=== PATIENT | male | born 1945 | race Caucasian/White ===

== ENCOUNTER → 2017-03-27 | Outpatient (CLI) | payer MEDICARE, OTHER ==
[~2017-03-27] MED LIST: ALLOPURINOL300 MG PO; AMIODARONE HCL200 MG PO; ATORVASTATIN CA10 MG PO; COUMADIN3 MG PO; HYDROCHLOROTHIA25 MG PO; IOPAMIDOL 370 MG/ML 200 ML INFUS..BTL INJ ONE; NIACIN500 M2 PO; SODIUM CHLORIDE 0.9% 50ML 50 ML ONE; WARFARIN SODIUM3 MG PO
[2017-03-27 10:15] LABS: BLOOD UREA NITROGEN 18 mg/dL (7-26); BUN/CREATININE RATIO 18 (6-25); CREATININE, SERUM 1.01 mg/dL (0.72-1.25); EST GLOMERULAR FILTRATION RATE > 60 ML/MIN (60-)
--- NOTE | 2017-03-30 07:33 | Diagnostic Imaging Report ---
CT abdomen, 03/27/2017 Clinical history: Abdominal aortic aneurysm Comparison: June 02, 2016 Technique: Arterial protocol Volumetric CT abdomen after administration of 100 mL Isovue 370 intravenous contrast. Multiplanar reformatted images. 3-D volume rendered images of the arterial tree generated at an independent workstation under physician supervision. DLP: 495.81 Findings: Vascular: Aortic dimensions: Diaphragmatic hiatus: 2.2 cm Level of the renal arteries: 1.9 cm Proximal infrarenal abdominal aorta: 2 cm Distal infrarenal abdominal aorta: 1.7 cm Fusiform aneurysm of the infrarenal aorta originating about 1.8 cm from the level of the right renal artery. Aneurysm length 8.6 cm, with a maximal transverse dimension of 4.1 cm. No mural thrombus. No dissection or intramural hematoma. The aneurysm terminates just prior to the bifurcation. Right iliac artery: 1.2 cm Left iliac artery: 1.2 cm Celiac axis: Type I. Normal caliber. Trace origin atherosclerosis, [id number]. SMA: Patent. Greater than 60% stenosis at the proximal segment (image 76, series 400). Stenosis length approximately 2 cm. OVIDIO: Patent. The origin is at about mid point of the fusiform aneurysm described above. Renal arteries: Right: 2 renal arteries. The inferior renal artery has a greater than 60% stenosis measuring about 1 cm in length (image 53, series 401) Left: 3 renal arteries. Short segment ostial stenosis (image 53, series 401 and 73, series 3) at the most inferior (largest) artery. Nonvascular findings: Lung bases: Normal Heart and pericardium: Normal moderate left anterior descending and right coronary calcification. Liver: Normal Gallbladder: Normal Pancreas: Normal Spleen: Normal Adrenal glands: Indistinct left nodular thickening up to 1.9 x 4.5 cm (image 60, series 3) increased from 1.8 x 3.7 cm. Current attenuation 37 Hounsfield units. Precontrast attenuation on June 02, 2016 -5HU. Kidneys: 1.3 cm left inferior pole cyst. Otherwise, normal Bowel: Normal caliber. Partially imaged. Peritoneum: Normal Lymph nodes: Normal Skeleton: Intact Soft tissues: Normal Impression: 1. 8.6 cm long fusiform infrarenal aortic aneurysm with maximal transverse diameter of 4.1 cm. This is unchanged from June 02, 2016. 2. 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 3. Bilateral renal artery stenosis. Multiple renal arteries bilaterally. 4. Enlargement of left adrenal nodule. CT from June 02, 2016 in keeping with adenoma. Given interval growth consider adrenal protocol magnetic resonance imaging for further characterization. This report was generated with voice-recognition technology. Errors in accounts officer can occur. Please interpret accordingly and contact a radiologist if there are any questions regarding the report. Signed by: Dr. Mynor Meléndez M.D. on 03/30/2017 7:30 AM
== END ==
LOC: CT 09:22
PROVIDERS: ATTEND Thoracic Surgery (Cardiothoracic Vascular Surgery)
DX: I71.4 Abdominal aortic aneurysm, without rupture (principal)
CPT/HCPCS: 36415; 74175; 82565; 84520; Q9967

== ENCOUNTER 2017-07-01 09:12 | Emergency (ER) | payer MEDICARE, OTHER ==
[~2017-07-01] VITALS: Ht 180.3 cm; Wt 94.3 kg
[~2017-07-01 09:12] MED LIST changes: -IOPAMIDOL 370 MG/ML 200 ML INFUS..BTL INJ ONE; -SODIUM CHLORIDE 0.9% 50ML 50 ML ONE
--- OUTSIDE RECORDS SUMMARY | 2017-07-01 09:16 | XMS REPORT ---
Author [facility] Address Unknown Phone Unavailable Care Team Providers Care Jewel Waxer Name Role Phone TIGIST OLEA Unavailable Unavailable Problems This patient has no known problems. Allergies, Adverse Reactions, Alerts This patient has no known allergies or adverse reactions. Medications This patient has no known medications. Results Test Description Test Time Test Comments Text Results Atomic Results Result Comments CTA ABDOMEN [address] [address] Patient Name: TIGIST MILLER MR #: [id number] : 1945 Age/Sex: 71/M Req # : [id number] Adm Physician: Ordered by: TIGIST OLEA MD Report #: [id number] Location: CT Room/Bed: Procedure: [id number] CT/CTA ABDOMEN Exam Date: 03/27/17 Exam Time: 1054 REPORT STATUS: Signed CT abdomen, 03/27/2017 Clinical history: Abdominal aortic aneurysm Comparison: June 02, 2016 Technique: Arterial protocol Volumetric CT abdomen after administration of 100 mL Isovue 370 intravenous contrast. Multiplanar reformatted images. 3-D volume rendered images of the arterial tree generated at an independent workstation under physician supervision. DLP: 495.81 Findings: Vascular: Aortic dimensions: Diaphragmatic hiatus: 2.2 cm Level of the renal arteries: 1.9 cm Proximal infrarenal abdominal aorta: 2 cm Distal infrarenal abdominal aorta: 1.7 cm Fusiform aneurysm of the infrarenal aorta originating about 1.8 cm from the level of the right renal artery. Aneurysm length 8.6 cm, with a maximal transverse dimension of 4.1 cm. No mural thrombus. No dissection or intramural hematoma. The aneurysm terminates just prior to the bifurcation. Right iliac artery: 1.2 cm Left iliac artery: 1.2 cm Celiac axis: Type I. Normal caliber. Trace origin atherosclerosis, [id number]. SMA : Patent. Greater than 60% stenosis at the proximal segment (image 76, series 400). Stenosis length approximately 2 cm. OVIDIO: Patent. The origin is at about mid point of the fusiform aneurysm described above. Renal arteries: Right: 2 renal arteries. The inferior renal artery has a greater than 60% stenosis measuring about 1 cm in length (image 53, series 401) Left: 3 renal arteries. Short segment ostial stenosis (image 53, series 401 and 73, series 3 ) at the most inferior (largest) artery. Nonvascular findings: Lung bases : Normal Heart and pericardium: Normal moderate left anterior descending and right coronary calcification. Liver: Normal Gallbladder: Normal Pancreas: Normal Spleen: Normal Adrenal glands: Indistinct left nodular thickening up to 1.9 x 4.5 cm (image 60, series 3) increased from 1.8 x 3.7 cm. Current attenuation 37 Hounsfield units. Precontrast attenuation on June 02, 2016 -5HU. Kidneys: 1.3 cm left inferior pole cyst. Otherwise, normal Bowel: Normal caliber. Partially imaged. Peritoneum: Normal Lymph nodes : Normal Skeleton: Intact Soft tissues: Normal Impression: 1. 8.6 cm long fusiform infrarenal aortic aneurysm with maximal transverse diameter of 4.1 cm. This is unchanged from June 02, 2016. 2. Greater than 60 % proximal segment SMA stenosis. 3. Bilateral renal artery stenosis. Multiple renal arteries bilaterally. 4. Enlargement of left adrenal nodule. CT from June 02, 2016 in keeping with adenoma. Given interval growth consider adrenal protocol magnetic resonance imaging for further characterization. This report was generated with voice-recognition technology. Errors in chief nursing officer can occur. Please interpret accordingly and contact a radiologist if there are any questions regarding the report. Signed by: Dr. Roshan Meléndez M.D. on 03/30/2017 7:30 AM Dictated By: ROSHAN MELÉNDEZ MD 9 Transcribed By: SANTA on 03/30/17729 COPY TO: TIGIST OLEA MD
[2017-07-01] MEDS ORDERED: TETANUS/DIPHTHERIA TOX ADULT 0.5 ML SYR ONE (09:52)
[2017-07-01] MEDS ORDERED: TETANUS/DIPHTHERIA TOX ADULT 0.5 ML SYR IM ONE (10:00)
== END 2017-07-01 10:07 | disposition home or self-care (01) ==
LOC: ER 09:12
DX: S51.812A Laceration without foreign body of left forearm, initial encounter (principal); W26.0XXA Contact with knife, initial encounter; Y92.008 Other place in unspecified non-institutional (private) residence as the place of occurrence of the external cause
CPT/HCPCS: 90471; 90714; 99283

== ENCOUNTER → 2018-06-17 | Day surgery (SDC) | payer MEDICARE, OTHER ==
[2018-06-10 10:01] LABS: BASOPHILS % 0.4 % (0.0-1.0); EOSINOPHILS # (AUTO) 0.2 (0.0-0.4); EOSINOPHILS % 3.1 % (0.0-6.0); HEMATOCRIT 46.4 % (38.2-49.6); HEMOGLOBIN 15.2 g/dL (14.0-18.0); LYMPHOCYTES # (AUTO) 0.6 (1.0-3.2); LYMPHOCYTES % 12.7 % (18.0-39.1); MEAN CORPUSCULAR HEMOGLOBIN 31.3 pg (28-32); MEAN CORPUSCULAR HGB CONC 32.8 g/dL (31-35); MEAN CORPUSCULAR VOLUME 95.5 fL (81-99); MONOCYTES # (AUTO) 0.7 (0.2-0.8); MONOCYTES % 14.6 % (4.4-11.3); NEUTROPHILS # (AUTO) 3.3 (2.1-6.9); PLATELET COUNT 118 x10e3/uL (140-360); RED BLOOD COUNT 4.86 x10e6/uL (4.3-5.7); RED CELL DISTRIBUTION WIDTH 13.4 % (11.7-14.4)
[2018-06-10 10:13] LABS: ALANINE AMINOTRANSFERASE 53 IU/L (0-55); ALBUMIN 3.7 g/dL (3.5-5.0); ALBUMIN/GLOBULIN RATIO 1.2 (0.8-2.0); ALKALINE PHOSPHATASE 66 IU/L (40-150); BLOOD UREA NITROGEN 23 mg/dL (7-26); BUN/CREATININE RATIO 24 (6-25); CALCIUM 9.1 mg/dL (8.4-10.2); CARBON DIOXIDE 26 mmol/L (22-29); CHLORIDE 104 mmol/L (98-107); CREATININE, SERUM 0.95 mg/dL (0.72-1.25); EST GLOMERULAR FILTRATION RATE > 60 ML/MIN (60-); GLUCOSE 84 mg/dL (74-118); SODIUM 137 mmol/L (136-145)
--- NOTE | 2018-06-10 11:29 | Diagnostic Imaging Report ---
EXAMINATION: CHEST 2 VIEWS INDICATION: Pre-op. COMPARISON: None FINDINGS: TUBES and LINES: None. LUNGS: Lungs are well inflated. There is no evidence of pneumonia or pulmonary edema. PLEURA: No pleural effusion or pneumothorax. HEART AND MEDIASTINUM: The cardiomediastinal silhouette is unremarkable. There are atherosclerotic calcifications within the aorta. BONES AND SOFT TISSUES: No acute osseous abnormality. UPPER ABDOMEN: No free air under the diaphragm. IMPRESSION: No acute radiographic abnormality. Signed by: Dr. Noemi Mohr MD on 06/10/2018 11:26 AM
[~2018-06-17] MED LIST changes: +AMIODARONE HCL200 MG; +BACITRACIN 50,000 UNIT VIAL ONE; +BUPIVACAINE HCL 0.5% INJ 30 ML VIAL INJ ONE; +CEFAZOLIN SOD 2 GM/D5W 50ML 50 ML IV ONE; +DEXAMETHASONE SOD PHOS INJ 4 MG/ML VIAL ONE; +EPHEDRINE SULFATE INJ 50 MG/10 ML SYR ONE; +FENTANYL CITRATE/PF 100MCG/2 ML INJ ONE; +FINASTERIDE5 MG PO; +FLOMAX0.4 MG PO; +GLYCOPYRROLATE INJ 1MG/ 5 ML SYR ONE; +HYDROCHLOROTHIA25 MG; +KETOROLAC TROMETHAMINE 30 MG/ML VIAL ONE; +LIDOCAINE HCL 2% LOCAL INJ 5 ML SDV VIAL INJ ONE; +MIDAZOLAM HCL 2 MG/2 ML VIAL ONE; +NIASPAN500 MG PO; +ONDANSETRON HCL INJ 2MG/ML 2ML 2 MG/ML VIAL ONE; +PANTOPRAZOLE SO40 MG PO; +PHENYLEPHRINE HCL 1% 10 MG/ML VIAL ONE; +PROPOFOL IV EMULSION 10 MG/ML 20 ML VIAL ONE; +SEVOFLURANE INHAL SOLN 250 ML PEN BTL ONE; +WARFARIN SODIUM5 MG
[2018-06-17 09:21] LABS: PROTHROMBIN TIME 13.7 seconds (11.9-14.5)
[2018-06-17 09:22] LABS: PARTIAL THROMBOPLASTIN TIME 28.1 seconds (23.8-35.5)
[2018-06-17 13:00] VITALS: BP 123/65
--- NOTE | 2018-06-21 17:24 | Operative Report ---
DATE OF PROCEDURE: 06/17/2018 SURGEON: Lionel Tsang MD PREOPERATIVE DIAGNOSIS: Right inguinal hernia. POSTOPERATIVE DIAGNOSIS: Right indirect and indirect inguinal hernia. ANESTHESIA: Staff. ANESTHESIA: General. ESTIMATED BLOOD LOSS: 5-10 mL. Sponge, needle count, and instrument count was correct. The patient was consented for the surgery. I explained all the procedure and complication to the patient as well as given him a pamphlet on hernias, hernia repair, and complications. The patient agreed with procedure. DESCRIPTION OF PROCEDURE: The patient was brought into the operating room, placed under general anesthetic on the operating table. The lower abdomen was shaved, prepped with Betadine soap and solution and draped in usual manner. A time-out was obtained with all members of the operating room in agreement with the procedure. At this point, local anesthetic was used to infiltrate the area of the incision, which was 1 cm above the symphysis pubis with local anesthetic 0.25% Marcaine, which was infiltrated subcuticularly subcutaneously. He was also using intraoperatively at the internal inguinal ring cord structures. The incision was made, carried down through all the fat, which was extensive. The patient is obese. External oblique was identified. Injection of local anesthetic was done at this point to the cord and the fibers were opened with tenotomy scissors. This was done from external inguinal ring to the area of the internal inguinal ring. Cord was dissected, quite a bit of scar tissue was identified and tissue reaction due to the chronicity of the hernia. The first hernia found was a direct hernia. The floor of the inguinal canal was absent. All the cremasteric fibers had also been turned up because of inguinal hernia as well. This was found superior and lateral to the cord structures. Separation of the inguinal sac was done from the cord structures all the way to the internal inguinal ring and I followed it into the retroperitoneum where also found was the vas deferens. The hernia sac was opened, noted that there was no intestinal contents in the hernia sac. The neck of the hernia was identified and it was doubly ligated with a stick suture of #0 Ethibond. Excess sac was cut out and sending for pathological specimen and the ring was then sutured to the posterior aspect of the external oblique fascia as well as the transversalis muscle. This was done using a free needle. Once that was done, then attention was placed to the direct component of the hernia. The floor was completely destroyed by the chronicity of the hernia. Ultra Pro mesh was chosen. A segment 6 x 6 was used. The segment was placed in the inguinal canal. The inguinal ligament was sutured and placed to the mesh starting at the Poupart's ligament and carried with a continuous suture all the way above the internal inguinal ring. Once that was tied in, then loose sutures were placed against the conjoined tendon of the rectus muscle. Multiple sutures were placed in and after that was done, the proximal end of the mesh was cut in the middle and wrapped around the cord and then placed underneath the external oblique fascia. Copious irrigation was made and local anesthetic was used again. No bleeding points were identified. Closure of the external oblique was done using a running suture of 2-0 Vicryl subcutaneously and subcuticularly 4-0 Monocryl with Steri-Strips and Dermabond on the skin. DISCHARGE INSTRUCTIONS: The patient was in the recovery room in satisfactory condition. He was given tramadol for pain. He is supposed to go home and call me for further instructions if needed. He is not to lift anything heavy and I will see him in the office in three weeks. He is to take laxative to prevent constipation. He is not to drive while taking pain medications. MD BRADEN Romero/MODL /[id number]
== END | disposition home or self-care (01) ==
LOC: OR 07:03 → MERGE 09:30
PROVIDERS: ATTEND Urology
DX: K40.90 Unilateral inguinal hernia, without obstruction or gangrene, not specified as recurrent (principal); E66.9 Obesity, unspecified; G47.33 Obstructive sleep apnea (adult) (pediatric); I48.0 Paroxysmal atrial fibrillation; I71.4 Abdominal aortic aneurysm, without rupture; E78.5 Hyperlipidemia, unspecified; K21.9 Gastro-esophageal reflux disease without esophagitis; N40.0 Benign prostatic hyperplasia without lower urinary tract symptoms; M10.9 Gout, unspecified; F17.290 Nicotine dependence, other tobacco product, uncomplicated; Z01.810 Encounter for preprocedural cardiovascular examination; Z01.812 Encounter for preprocedural laboratory examination; Z01.818 Encounter for other preprocedural examination; Z79.01 Long term (current) use of anticoagulants; Z79.82 Long term (current) use of aspirin; Z86.718 Personal history of other venous thrombosis and embolism
CPT/HCPCS: 36415 ×2; 49505; 71046; 80053; 85025; 85610; 85730; 87086; 88302; 93005; C1781; J0690; J1100; J1885; J2001; J2250; J2370; J2405; J2704; J3490

== ENCOUNTER → 2019-04-10 | Emergency (ER) | payer MEDICARE, OTHER ==
[~2019-04-10] VITALS: Ht 180.3 cm; Wt 94.3 kg
[~2019-04-10] MED LIST changes: -BACITRACIN 50,000 UNIT VIAL ONE; -BUPIVACAINE HCL 0.5% INJ 30 ML VIAL INJ ONE; -CEFAZOLIN SOD 2 GM/D5W 50ML 50 ML IV ONE; -DEXAMETHASONE SOD PHOS INJ 4 MG/ML VIAL ONE; -EPHEDRINE SULFATE INJ 50 MG/10 ML SYR ONE; -FENTANYL CITRATE/PF 100MCG/2 ML INJ ONE; -GLYCOPYRROLATE INJ 1MG/ 5 ML SYR ONE; -KETOROLAC TROMETHAMINE 30 MG/ML VIAL ONE; -LIDOCAINE HCL 2% LOCAL INJ 5 ML SDV VIAL INJ ONE; -MIDAZOLAM HCL 2 MG/2 ML VIAL ONE; -ONDANSETRON HCL INJ 2MG/ML 2ML 2 MG/ML VIAL ONE; -PHENYLEPHRINE HCL 1% 10 MG/ML VIAL ONE; -PROPOFOL IV EMULSION 10 MG/ML 20 ML VIAL ONE; -SEVOFLURANE INHAL SOLN 250 ML PEN BTL ONE
[2019-04-10] MEDS: IBUPROFEN 200 MG TAB PO ONE (08:49)
[2019-04-10] MEDS: ONDANSETRON HCL 4 MG ORAL DISINTEGRATING TAB PO ONE (08:49)
[2019-04-10] MEDS: ACETAMINOPHEN 325 MG TAB PO ONE (08:49)
--- NOTE | 2019-04-10 09:53 | Diagnostic Imaging Report ---
History: Neck pain, no trauma Comparison studies: None Technique: Axial images were obtained through the cervical region. Coronal and sagittal images reconstructed from the axial data. Intravenous contrast: None Dose modulation, iterative reconstruction, and/or weight based adjustment of the mA/kV was utilized to reduce the radiation dose to as low as reasonably achievable. Findings: Atlantoaxial articulation: Well-corticated bone separation at the base of the dens, related to type II chronic fracture, in adequate alignment. Thickened tentorial membrane results in mild canal stenosis. Alignment: Straightening of the normal lordosis No scoliosis. Cervicomedullary junction: No abnormalities. Patent foramen magnum. Soft tissues: No gross paraspinal abnormalities. Atherosclerotic calcifications at the carotid siphons, vertebral arteries, and carotid bulbs Subcentimeter hypodense nodule at the bilateral thyroid lobes, no further evaluation needed. Vertebrae: No fractures, neoplasm or infection. Degenerative changes: C2-C3: Right facet and uncinate process hypertrophy results in mild right foraminal narrowing with patent canal . C3-4: Bilateral facet hypertrophy results in mild bilateral foraminal narrowing with patent canal. C4-5: Patent spinal canal and foramina C5-6: Disc degeneration with decreased space.Patent spinal canal and foramina C6-7: Disc degeneration with decreased intervertebral space and mild sclerotic endplate changes. Disc osteophyte complex, and bilateral facet hypertrophy results in mild canal stenosis and mild bilateral foraminal narrowing . C7-T1: Patent spinal canal and foramina . IMPRESSION: 1. No acute cervical abnormality. 2. Well-corticated nonunited type II dens fracture. 3. Degenerative changes of the cervical spine without significant (moderate or severe) canal stenosis or foraminal narrowing Signed by: DR Taco Anderson M.D. on 04/10/2019 9:52 AM
[2019-04-10 09:59] VITALS: BP 146/82
== END | disposition home or self-care (01) ==
LOC: ER 08:10
DX: S16.1XXA Strain of muscle, fascia and tendon at neck level, initial encounter (principal); M47.812 Spondylosis without myelopathy or radiculopathy, cervical region; I48.91 Unspecified atrial fibrillation; Z86.718 Personal history of other venous thrombosis and embolism
CPT/HCPCS: 72125; 99283; Q0162

== ENCOUNTER → 2019-04-13 | Outpatient (CLI) | payer MEDICARE, OTHER ==
--- NOTE | 2019-04-13 11:56 | Diagnostic Imaging Report ---
MRI SPINE CERVICAL WO HISTORY: Neck pain COMPARISON: Cervical spine CT 04/10/2019 TECHNIQUE: Sagittal T1, sagittal T2, sagittal inversion recovery, axial T2 , axial GRE, and axial T1 weighted MR images of the cervical spine were obtained without intravenous contrast. Motion artifacts obscure some details. DISCUSSION: Alignment: Normal lordosis. No scoliosis. Vertebrae: Corticated odontoid fragment has not significantly changed. There is no significant marrow edema or retropulsion. Trace fluid is seen in between this fragment and the C2 vertebral body. Otherwise, no definite evidence for acute fractures, infection, or neoplasm. Cervicomedullary junction: No abnormalities. Spinal cord: Normal in signal and morphology from the foramen magnum through T3-T4. Soft tissues: Subcentimeter bilateral T2 hyperintense thyroid nodules are present - no further imaging is indicated. Mild to moderate multilevel disc degeneration is most prominent at C6-C7. C2-C3: Patent canal and foramina. C3-C4: Moderate bilateral foraminal stenoses due to uncovertebral and facet arthrosis. No significant canal stenosis. C4-C5: Mild canal stenosis due to posterior disc osteophyte complex and ligamentum flavum thickening. Mild left foraminal stenosis due to uncovertebral and facet arthrosis. No significant right foraminal stenosis. C5-C6: Mild canal stenosis due to posterior disc osteophyte complex and ligamentum flavum thickening. Mild bilateral foraminal stenoses due to uncovertebral and facet arthrosis. C6-C7: Moderate bilateral foraminal stenoses due to uncovertebral and facet arthrosis. No significant canal stenosis. C7-T1: Mild bilateral foraminal stenoses due to uncovertebral and facet arthrosis. No significant canal stenosis. IMPRESSION: 1. Unchanged chronic, unhealed type II dens fracture without significant displacement (or adjacent canal stenosis). 2. No acute osseous abnormalities. 3. Mild to moderate multilevel disc degeneration, most prominent at C6-C7. 4. Multilevel degenerative foraminal stenoses - moderate bilaterally at C3-C4 and C6-C7. 5. Mild degenerative canal stenoses at C4-C5 and C5-C6. Signed by: Dr. Miguel Banerjee M.D. on 04/13/2019 11:53 AM
== END ==
LOC: MRI 10:32
PROVIDERS: ATTEND Family Medicine
DX: M48.02 Spinal stenosis, cervical region (principal)
CPT/HCPCS: 72141

== ENCOUNTER → 2019-05-03 | Outpatient (CLI) | payer MEDICARE, OTHER | LOC: RAD 09:17 | PROVIDERS: ATTEND Family Medicine | DX: R60.0 Localized edema (principal); I82.511 Chronic embolism and thrombosis of right femoral vein; I82.531 Chronic embolism and thrombosis of right popliteal vein; Z79.01 Long term (current) use of anticoagulants | CPT/HCPCS: 93970 ==

== ENCOUNTER → 2019-06-09 | Outpatient (CLI) | payer MEDICARE, OTHER ==
--- NOTE | 2019-06-09 10:16 | Diagnostic Imaging Report ---
EXAM: SPINE CERVICAL AP LAT FLEX EXT DATE: 06/09/2019 9:14 AM INDICATION: Neck pain, status post fusion COMPARISON: MRI cervical spine from 04/13/2019, CT cervical spine from 04/10/2019 FINDINGS/IMPRESSION: In this patient with known chronic nonunited type II dens fracture, there are interval postsurgical changes with fixation screws noted extending to the bilateral lateral masses. Hardware appears intact. There is no evidence for acute fracture or dislocation. No focal lytic or blastic abnormality is identified. There are stable appearing degenerative changes of the cervical spine most prominent at at C6-C7 where there is intervertebral disc space narrowing, uncovertebral spurring, and facet arthropathy. The surrounding soft tissues are unremarkable without evidence for radiopaque foreign body. The lung apices are unremarkable. Signed by: Dr. Cj Lezama MD on 06/09/2019 10:13 AM
== END ==
LOC: RAD 09:08
PROVIDERS: ATTEND Neurological Surgery
DX: M50.20 Other cervical disc displacement, unspecified cervical region (principal); M43.22 Fusion of spine, cervical region
CPT/HCPCS: 72050

== ENCOUNTER → 2019-07-08 | Outpatient (CLI) | payer MEDICARE, OTHER ==
[~2019-07-08] MED LIST changes: +IOPAMIDOL 370 MG/ML 200 ML INFUS..BTL INJ ONE; +SODIUM CHLORIDE 0.9% 100 ML ONE
[2019-07-08 13:23] LABS: BLOOD UREA NITROGEN 22 mg/dL (7-26); BUN/CREATININE RATIO 22 (6-25); CREATININE, SERUM 1.02 mg/dL (0.72-1.25); EST GLOMERULAR FILTRATION RATE > 60 ML/MIN (60-)
--- NOTE | 2019-07-08 15:15 | Diagnostic Imaging Report ---
CTA OF THE ABDOMEN Comparison: CTA Abdomen, 06/07/2018 IV CONTRAST:100mL of Isovue-370 ORAL CONTRAST: None RADIATION DOSE: Total DLP: 498 mGy*cm COMPLICATIONS: None For optimization of anatomic evaluation, multiplanar reconstruction, maximum intensity projections, and advanced 3-D off-line postprocessing were performed on a dedicated stand-alone workstation under the direct supervision of the interpreting physician. Dose modulation, iterative reconstruction, and/or weight based adjustment of the mA/kV was utilized to reduce the radiation dose to as low as reasonably achievable FINDINGS: VASCULAR WITH ADVANCED 3-D OFF-LINE POSTPROCESSING: The abdominal aorta is normal in course, caliber, and contour. There is no acute aortic pathology. The abdominal aorta measures: 2.5 cm at the supramesenteric segment 1.8 cm at the mesenteric segment 1.7 cm at the renal segment 5.2 cm at the mid infrarenal segment (previously 4.1 cm). 1.8 cm at the aortic bifurcation. Right common iliac, 0.9 cm diameter. Left common iliac, 1.2 cm diameter. Celiac artery is widely patent. There is mild stenosis at the origin of the SMA. There is no contrast opacification of the proximal OVIDIO which originates at the level of the aneurysm. More distal reconstitution, likely from SMA collaterals. Interval increase in mural thrombus in the aneurysm sac. Renal arteries are patent bilaterally with 1 small accessory renal artery on the right, and 2 small accessory renal arteries on the left. There is high-grade stenosis again seen at the origin of each dominant renal artery. LOWER CHEST: No focal lung base consolidation. Atherosclerotic coronary artery calcifications. ABDOMEN: The liver, gallbladder, spleen, and pancreas appear normal. Again noted is nodular enlargement of each adrenal, measuring 3.4 x 2.1 cm on the right and 3.7 x 1.8 cm on the left, appearing unchanged from prior exam. Internal density 27 HU. These reportedly measured fat density on earlier noncontrast CT compatible with lipid rich adenomas. Both kidneys are normal in size, shape, and density. There is no abnormal mass or hydronephrosis. Stable lower pole left renal cyst. There is no significant retroperitoneal adenopathy. No free fluid or free air within the abdomen or pelvis. The bowel appears unremarkable on this non-GI contrast examination. No acute or suspicious bony lesion. IMPRESSION: Interval increase in size of infrarenal abdominal aortic aneurysm, now measuring up to 5.2cm compared to 4.1cm previously. Recommend vascular evaluation for aneurysm repair. Signed by: Rebeca Roy MD on 07/08/2019 3:12 PM
== END ==
LOC: CT 12:24
PROVIDERS: ATTEND Thoracic Surgery (Cardiothoracic Vascular Surgery)
DX: I71.4 Abdominal aortic aneurysm, without rupture (principal)
CPT/HCPCS: 36415; 74175; 82565; 84520; J7050; Q9967

== ENCOUNTER → 2019-12-07 | Outpatient (CLI) | payer MEDICARE, OTHER ==
[~2019-12-07] MED LIST changes: -IOPAMIDOL 370 MG/ML 200 ML INFUS..BTL INJ ONE; -SODIUM CHLORIDE 0.9% 100 ML ONE
--- NOTE | 2019-12-07 09:35 | Diagnostic Imaging Report ---
Cervical spine, 4 views. History: Post fusion. Discussion: Flexion and extension views were obtained. The cervical spine is visualized on the lateral view from C1 through C7. There is straightening of the normal lordotic curvature. Surgical wires and screws are present at C1-C2. Hardware is intact. There is no evidence of acute fracture, subluxation, or posterior splaying. There is moderate space narrowing and osteophytosis at C5-C7. Flexion and extension views demonstrates no evidence of subluxation. There are bilateral small cervical ribs. The prevertebral soft tissues are within normal limits. IMPRESSION: Status post C1-C2 fusion without evidence of instability on flexion and extension views. Degenerative changes are noted in the lower cervical spine. Signed by: Brendon Gonzalez on 12/07/2019 9:31 AM
== END ==
LOC: RAD 09:07
PROVIDERS: ATTEND Neurological Surgery
DX: M50.20 Other cervical disc displacement, unspecified cervical region (principal); M43.22 Fusion of spine, cervical region
CPT/HCPCS: 72050

== ENCOUNTER 2021-09-27 09:10 | Emergency (ER) | payer MEDICARE, OTHER ==
[~2021-09-27] VITALS: Ht 180.3 cm; Wt 94.3 kg
== END 2021-09-27 10:15 | disposition home or self-care (01) ==
LOC: ER 09:30
DX: R09.89 Other specified symptoms and signs involving the circulatory and respiratory systems (principal); I48.91 Unspecified atrial fibrillation; Z86.718 Personal history of other venous thrombosis and embolism
CPT/HCPCS: 99282

== ENCOUNTER 2024-01-13 03:23 | Emergency (ER) | payer MEDICARE ==
[~2024-01-13] VITALS: Ht 218.4 cm; Wt 113.4 kg
[~2024-01-13 03:23] MED LIST changes: +BACTRIM DS TAB1 EACH PO; +CEPHALEXIN500 MG PO; +PEPCID20 MG PO; +POTASSIUM CHLO20 ME1 PO; +WARFARIN SODIUM4 MG; +WARFARIN SODIUM4 MG PO; -WARFARIN SODIUM5 MG; +WARFARIN SODIUM5 MG PO; +glycopyrolate PO
[2024-01-13 03:30] VITALS: PULSE 70; RESP 18; TEMP 98.1; O2SAT 99
[2024-01-13] MEDS ORDERED: NAPROXEN250 MG PO (04:53)
== END 2024-01-13 05:01 | disposition home or self-care (01) ==
LOC: ER 03:30
DX: M79.675 Pain in left toe(s) (principal); I10 Essential (primary) hypertension; E78.5 Hyperlipidemia, unspecified; I48.91 Unspecified atrial fibrillation; E03.9 Hypothyroidism, unspecified; M10.9 Gout, unspecified; K21.9 Gastro-esophageal reflux disease without esophagitis
CPT/HCPCS: 99283

== ENCOUNTER 2024-03-28 03:44 | Emergency (ER) | payer MEDICARE ==
[~2024-03-28] VITALS: Ht 218.4 cm; Wt 113.4 kg
[~2024-03-28 03:44] MED LIST changes: +NAPROXEN250 MG PO
[2024-03-28 03:52] VITALS: PULSE 66; RESP 20; TEMP 98.3; O2SAT 100
== END 2024-03-28 05:24 | disposition home or self-care (01) ==
LOC: ER 04:02
DX: S93.491A Sprain of other ligament of right ankle, initial encounter (principal); S80.11XA Contusion of right lower leg, initial encounter; W00.0XXA Fall on same level due to ice and snow, initial encounter; Y93.01 Activity, walking, marching and hiking; Y92.89 Other specified places as the place of occurrence of the external cause; I48.91 Unspecified atrial fibrillation; E78.5 Hyperlipidemia, unspecified; E03.9 Hypothyroidism, unspecified; K21.9 Gastro-esophageal reflux disease without esophagitis; M10.9 Gout, unspecified; G47.30 Sleep apnea, unspecified; M43.22 Fusion of spine, cervical region; Z86.718 Personal history of other venous thrombosis and embolism
CPT/HCPCS: 99283

== ENCOUNTER 2024-05-31 14:52 | Emergency (ER) | payer MEDICARE ==
[~2024-05-31] VITALS: Ht 182.9 cm; Wt 113.4 kg
[2024-05-31 15:20] LABS: BASOPHILS % 0.1 % (0.0-1.0); EOSINOPHILS % 0.3 % (0.0-6.0); HEMATOCRIT 42.7 % (38.2-49.6); HEMOGLOBIN 14.2 g/dL (14.0-18.0); LYMPHOCYTES # (AUTO) 0.3 (1.0-3.2); LYMPHOCYTES % 3.4 % (18.0-39.1); MEAN CORPUSCULAR HEMOGLOBIN 32.9 pg (28-32); MEAN CORPUSCULAR HGB CONC 33.3 g/dL (31-35); MEAN CORPUSCULAR VOLUME 99.1 fL (81-99); MONOCYTES # (AUTO) 0.5 (0.2-0.8); MONOCYTES % 5.3 % (4.4-11.3); NEUTROPHILS # (AUTO) 8.1 (2.1-6.9); NEUTROPHILS % 90.6 % (38.7-80.0); PLATELET COUNT 113 x10e3/uL (140-360); RED BLOOD COUNT 4.31 x10e6/uL (4.3-5.7); RED CELL DISTRIBUTION WIDTH 13.5 % (11.7-14.4); WHITE BLOOD COUNT 8.99 x10e3/uL (4.8-10.8)
[2024-05-31 15:45] LABS: ALBUMIN 3.9 g/dL (3.5-5.0); ALBUMIN/GLOBULIN RATIO 1.3 (0.8-2.0); BILIRUBIN,TOTAL 0.8 mg/dL (0.2-1.2); CALCIUM 9.1 mg/dL (8.4-10.2); CREATININE, SERUM 1.25 mg/dL (0.72-1.25); TOTAL PROTEIN 6.8 g/dL (6.5-8.1)
[2024-05-31 16:07] LABS: BILIRUBIN,URINE NEGATIVE (NEGATIVE); CLARITY,URINE CLEAR (CLEAR); COLOR,URINE YELLOW (YELLOW); GLUCOSE, URINE NEGATIVE (NEGATIVE); KETONES,URINE TRACE (NEGATIVE); LEUKOCYTE ESTERASE ,URINE NEGATIVE (NEGATIVE); NITRITE,URINE NEGATIVE (NEGATIVE); PH,URINE 7 (5 - 7); PROTEIN,URINE DIPSTICK 1+ (NEGATIVE); URINE UROBILINOGEN 0.2 mg/dL (0.2 - 1)
[2024-05-31 16:09] LABS: BACTERIA,URINE MODERATE /HPF; EPITHELIAL CELLS,URINE MODERATE /LPF; MUCUS,URINE MODERATE; RBC,URINE 0-5 /HPF (0-5); WBC,URINE (MAN) 0-5 /HPF (0-5)
[2024-05-31] MEDS ORDERED: CEFDINIR300 MG PO (16:41)
[2024-05-31 16:45] VITALS: PULSE 72; RESP 16; TEMP 98; O2SAT 97
== END 2024-05-31 16:50 | disposition home or self-care (01) ==
LOC: ER 14:57
DX: R53.1 Weakness (principal); N39.0 Urinary tract infection, site not specified; I48.91 Unspecified atrial fibrillation; E78.5 Hyperlipidemia, unspecified; K21.9 Gastro-esophageal reflux disease without esophagitis; E03.9 Hypothyroidism, unspecified; M10.9 Gout, unspecified; G47.30 Sleep apnea, unspecified; Z86.718 Personal history of other venous thrombosis and embolism
CPT/HCPCS: 36415; 70450; 71045; 80053; 81001; 84484; 85025; 93005; 99284

== ENCOUNTER 2024-08-26 09:32 | Emergency (ER) | payer MEDICARE ==
[~2024-08-26] VITALS: Ht 182.9 cm; Wt 111.1 kg
[~2024-08-26 09:32] MED LIST changes: +CEFDINIR300 MG PO
[2024-08-26] MEDS: TETANUS/DIPHTHERIA TOX ADULT 0.5 ML SYR IM ONE (10:29)
[2024-08-26] MEDS ORDERED: CEPHALEXIN500 MG PO (10:30)
[2024-08-26 10:46] VITALS: PULSE 66; RESP 16; TEMP 97.8; O2SAT 98
== END 2024-08-26 10:48 | disposition home or self-care (01) ==
LOC: ER 09:39
DX: S61.217A Laceration without foreign body of left little finger without damage to nail, initial encounter (principal); W26.0XXA Contact with knife, initial encounter; Y92.89 Other specified places as the place of occurrence of the external cause; I48.91 Unspecified atrial fibrillation; E03.9 Hypothyroidism, unspecified; E78.5 Hyperlipidemia, unspecified; K21.9 Gastro-esophageal reflux disease without esophagitis; M10.9 Gout, unspecified; G47.30 Sleep apnea, unspecified; Z86.718 Personal history of other venous thrombosis and embolism
CPT/HCPCS: 90471; 90714; 99283

== ENCOUNTER 2024-09-18 14:15 | Inpatient (IN) | payer MEDICARE ==
[~2024-09-18] VITALS: Ht 180.3 cm; Wt 111.1 kg
[2024-09-18 14:25] VITALS: TEMP 98
[2024-09-18] MEDS ORDERED: LIOTHYRONINE SO5 MCG PO (14:35)
[2024-09-18] MEDS ORDERED: CUVPOSA1 MG/5 ML PO (14:35)
[2024-09-18] MEDS ORDERED: PROTONIX20 MG PO (14:36)
[2024-09-18 14:59] LABS: BASOPHILS % 0.2 % (0.0-1.0); EOSINOPHILS % 0.0 % (0.0-6.0); LYMPHOCYTES % 4.9 % (18.0-39.1); MONOCYTES % 9.5 % (4.4-11.3); NEUTROPHILS % 85.1 % (38.7-80.0); RED CELL DISTRIBUTION WIDTH 13.2 % (11.7-14.4)
[2024-09-18] MEDS: SODIUM CHLORIDE 0.9% 1000ML 1,000 ML IV STA (15:10)
[2024-09-18 15:16] LABS: INR 1.42
[2024-09-18 15:21] LABS: STREPTOCOCCUS GRP A ANTIGEN NEGATIVE (NEGATIVE)
[2024-09-18 15:22] LABS: CORONAVIRUS COVID-19 AG POSITIVE (NEGATIVE)
[2024-09-18 15:22] LABS: EST GLOMERULAR FILTRATION RATE 64.0 ML/MIN (>=60)
[2024-09-18] MEDS ORDERED: IOPAMIDOL 370 MG/ML 100 ML INFUS..BTL INJ ONE (16:40)
[2024-09-18] MEDS ORDERED: ONDANSETRON HCL INJ 2MG/ML 2ML 2 MG/ML VIAL IV PRN ×2 (18:30→22:15)
[2024-09-18] MEDS ORDERED: ENOXAPARIN SODIUM INJ 100 MG/ML SYR SC SCH (18:30)
[2024-09-18] MEDS: ENOXAPARIN SODIUM INJ 100 MG/ML SYR SC ONE (18:44)
[2024-09-18] MEDS: IBUPROFEN 600 MG TAB PO PRN (18:46)
[2024-09-18 18:47] VITALS: PULSE 67; RESP 18
[2024-09-18] MEDS: SODIUM CHLORIDE 0.9% 1000ML 1,000 ML IV SCH (18:49)
[2024-09-18 20:00] VITALS: BP 153/74; PULSE 63; RESP 18; TEMP 98.3; O2SAT 99
[2024-09-18] MEDS ORDERED: CLONIDINE HCL 0.1 MG TAB PO PRN (22:15)
[2024-09-18] MEDS ORDERED: ACETAMINOPHEN 325 MG TAB PO PRN (22:15)
[2024-09-18 22:49] VITALS: BP 153/74; PULSE 63; RESP 18; TEMP 98.3; O2SAT 99
[2024-09-18 22:56] VITALS: BP 153/74; PULSE 63; RESP 18; TEMP 98.3; O2SAT 99
[2024-09-18] MEDS: ALBUTEROL SULF 0.083% NEB SOLN 3 ML NEB NEB SCH (23:00)
[2024-09-19] VITALS (13 sets, daily range): BP systolic 116–137; BP diastolic 48–63; PULSE 50–69; RESP 16–21; TEMP 97.5–97.9; O2SAT 95–100
[2024-09-19 05:30] LABS: BASOPHILS % 0.5 % (0.0-1.0); EOSINOPHILS % 2.2 % (0.0-6.0); LYMPHOCYTES % 13.4 % (18.0-39.1); MONOCYTES % 12.4 % (4.4-11.3); NEUTROPHILS % 71.0 % (38.7-80.0); RED CELL DISTRIBUTION WIDTH 13.1 % (11.7-14.4)
[2024-09-19 06:02] LABS: INR 1.58
[2024-09-19 06:12] LABS: EST GLOMERULAR FILTRATION RATE 89.0 ML/MIN (>=60)
[2024-09-19] MEDS: TAMSULOSIN HCL 0.4 MG CAP PO SCH (08:59)
[2024-09-19] MEDS: HYDROCHLOROTHIAZIDE 25 MG TAB PO SCH (08:59)
[2024-09-19] MEDS: POTASSIUM CHLORIDE 20 MEQ TAB CR PO SCH (08:59)
[2024-09-19] MEDS: PANTOPRAZOLE SOD 40 MG TABEC PO SCH ×2 (09:00)
[2024-09-19] MEDS: ALLOPURINOL 300 MG TAB PO SCH (09:00)
[2024-09-19] MEDS: FINASTERIDE 5 MG TAB PO SCH (09:00)
[2024-09-19] MEDS: LIOTHYRONINE SODIUM 5 MCG TAB PO SCH (09:00)
[2024-09-19] MEDS: AMIODARONE HCL 200 MG TAB PO SCH (09:00)
[2024-09-19] MEDS: FAMOTIDINE 20 MG TAB PO SCH (20:34)
[2024-09-19] MEDS: ATORVASTATIN 10 MG TAB PO SCH (20:34)
[2024-09-19] MEDS: WARFARIN SOD 2 MG TAB PO ONE (23:49)
[2024-09-20] VITALS (7 sets, daily range): BP systolic 116–128; BP diastolic 55–71; PULSE 67–80; RESP 16–18; TEMP 98–98.8; O2SAT 94–98
[2024-09-20 05:35] LABS: BASOPHILS % 0.3 % (0.0-1.0); EOSINOPHILS % 2.2 % (0.0-6.0); LYMPHOCYTES % 11.7 % (18.0-39.1); MONOCYTES % 11.7 % (4.4-11.3); NEUTROPHILS % 73.8 % (38.7-80.0); RED CELL DISTRIBUTION WIDTH 13.2 % (11.7-14.4)
[2024-09-20 06:09] LABS: EST GLOMERULAR FILTRATION RATE 91.0 ML/MIN (>=60)
[2024-09-20] MEDS ORDERED: WARFARIN SOD 2 MG TAB PO SCH (17:00)
== END 2024-09-20 12:15 | disposition home or self-care (01) | DRG 178 ==
LOC: ER 14:20 → ERHOLD 18:26 → MED/SURG 19:50
PROVIDERS: ADMIT Family Medicine; ATTEND Family Medicine
DX: U07.1 COVID-19 (principal); D68.9 Coagulation defect, unspecified; N17.9 Acute kidney failure, unspecified; E86.0 Dehydration; N40.0 Benign prostatic hyperplasia without lower urinary tract symptoms; I48.91 Unspecified atrial fibrillation; E03.9 Hypothyroidism, unspecified; K21.9 Gastro-esophageal reflux disease without esophagitis; E78.5 Hyperlipidemia, unspecified; R55 Syncope and collapse; R53.1 Weakness; R74.01 Elevation of levels of liver transaminase levels; R74.8 Abnormal levels of other serum enzymes; R19.7 Diarrhea, unspecified; Z79.01 Long term (current) use of anticoagulants; Z86.711 Personal history of pulmonary embolism; Z86.718 Personal history of other venous thrombosis and embolism; Z98.1 Arthrodesis status
CPT/HCPCS: 36415; 70450; 71045; 72125; 74177; 80053; 82550; 83518; 83690; 83735; 84484; 85025; 85610; 85730; 87070; 93005; 94640; 94799; 99284; J1650; J2470; J7030; Q9967

== ENCOUNTER 2024-12-09 13:34 | Emergency (ER) | payer MEDICARE ==
[~2024-12-09] VITALS: Ht 180.3 cm; Wt 111.1 kg
[~2024-12-09 13:34] MED LIST changes: +CUVPOSA1 MG/5 ML PO; +LIOTHYRONINE SO5 MCG PO; +PROTONIX20 MG PO
[2024-12-09 13:40] VITALS: PULSE 83; RESP 16; TEMP 97.9
[2024-12-09 14:36] LABS: BASOPHILS % 0.2 % (0.0-1.0); EOSINOPHILS % 0.1 % (0.0-6.0); LYMPHOCYTES % 2.9 % (18.0-39.1); MONOCYTES % 3.2 % (4.4-11.3); NEUTROPHILS % 93.3 % (38.7-80.0); RED CELL DISTRIBUTION WIDTH 13.6 % (11.7-14.4)
[2024-12-09 14:46] LABS: INR 2.33
[2024-12-09 14:56] LABS: EST GLOMERULAR FILTRATION RATE 62.0 ML/MIN (>=60)
[2024-12-09] MEDS: SODIUM CHLORIDE 0.9% 1000ML 1,000 ML IV STA (15:28)
[2024-12-09 17:42] LABS: LEUKOCYTE ESTERASE ,URINE NEGATIVE (NEGATIVE); PROTEIN,URINE DIPSTICK TRACE (NEGATIVE); URINE UROBILINOGEN 0.2 mg/dL (0.2 - 1)
[2024-12-09 17:43] LABS: EPITHELIAL CELLS,URINE FEW /LPF; WBC,URINE (MAN) 0-5 /HPF (0-5)
[2024-12-09 18:47] VITALS: BP 147/62; PULSE 79; RESP 15; TEMP 97.7; O2SAT 100
== END 2024-12-09 19:05 | disposition home or self-care (01) ==
LOC: ER 13:48
DX: R53.1 Weakness (principal); R07.89 Other chest pain; R42 Dizziness and giddiness; E86.0 Dehydration; I48.91 Unspecified atrial fibrillation; E78.5 Hyperlipidemia, unspecified; E03.9 Hypothyroidism, unspecified; K21.9 Gastro-esophageal reflux disease without esophagitis; M10.9 Gout, unspecified; G47.30 Sleep apnea, unspecified
CPT/HCPCS: 36415; 71045; 80053; 81001; 83735; 84484; 85025; 85610; 85730; 93005; 99284; J7030